=== PATIENT | male | born 1960 | race Caucasian/White ===

== ENCOUNTER 2019-01-13 11:46 | Emergency (ER) | payer BC ==
--- NOTE | 2019-01-13 13:53 | EDM.PDOC ---
ED HPI GENERAL MEDICAL PROBLEM - General Stated Complaint: RT KNEE PAIN Time Seen by Provider: 01/13/19 13:30 Source of Information: Reports: Patient History Limitations: Reports: No Limitations - History of Present Illness INITIAL COMMENTS - FREE TEXT/NARRATIVE: According to patient he claims he has been having left knee pain and swelling since Wednesday. Hurts to kneel. It started after he started gardening around [place] last Wednesday. HE developed pain over the lower knee cap. On Wednesday he notice redness. The redness has been localized to the lower knee cap and has not spread. But hurts to bend his knee. No fever or chills. No swelling of the leg or ankle.He is able to walk without discomfort. No other complaints. Onset: Gradual Onset Date: 01/11/19 Duration: Getting Worse Location: Reports: Lower Extremity, Left Quality: Reports: Ache Severity: Mild Improves with: Reports: Rest Worsens with: Reports: Movement Associated Symptoms: Denies: Confusion, Chest Pain, Cough, Diaphoresis, Fever/ Chills, Nausea/Vomiting, Rash, Seizure, Shortness of Breath, Syncope, Weakness right knee Pain Score (Numeric/FACES): 10 - Related Data Allergies Allergy/AdvReac Type Severity Reaction Status Date / Time No Known Allergies Allergy Verified 01/13/19 13:45 Home Meds: Home Meds Furosemide [Lasix] 20 mg PO DAILY 01/13/19 [History] Propranolol [Inderal] 40 mg PO DAILY 01/13/19 [History] ED ROS GENERAL - Review of Systems Review Of Systems: See Below Constitutional: Denies: Fever, Chills, Weakness HEENT: Denies: Ear Pain, Rhinitis, Throat Pain Respiratory: Denies: Cough, Sputum Cardiovascular: Denies: Chest Pain, Lightheadedness GI/Abdominal: Denies: Abdominal Pain, Nausea, Vomiting : Denies: Dysuria, Frequency Musculoskeletal: Reports: Joint Swelling. Denies: Joint Pain Skin: Denies: Bruising, Pruritis, Rash ED EXAM, GENERAL - Physical Exam Exam: See Below Exam Limited By: No Limitations General Appearance: Alert, WD/WN, No Apparent Distress Eye Exam: Bilateral Eye: EOMI, PERRL Ears: Normal External Exam, Normal Canal, Hearing Grossly Normal, Normal TMs Ear Exam: Bilateral Ear: Auricle Normal, Canal Normal, TM normal Nose: Normal Inspection, Normal Mucosa, No Blood Throat/Mouth: Normal Inspection, Normal Lips, Normal Teeth, Normal Gums, Normal Oropharynx, Normal Voice, No Airway Compromise Head: Atraumatic, Normocephalic Neck: Normal Inspection, Supple, Non-Tender, Full Range of Motion Respiratory/Chest: No Respiratory Distress, Lungs Clear, Normal Breath Sounds, No Accessory Muscle Use, Chest Non-Tender Extremities: Other (Left knee: There is swelling noted over the infrapatellar area. the swelling is about 4cm by 2cm. raised. There s mild erythema over the swelling. No skin abrasion or break down noted. On palpation mildly tender and minimal warmth felt.) Course - Vital Signs Text/Narrative:: Pt reassured that he has developed infrapatellar bursitis of the left knee. It probably is triggered by patient's gardening activities last week on dirt ground. His CBC is normal. There is more of inflammation. As he has been on dirt and soil kneeling, I have empirically started him on Augmentin 875mg 3 times daily. Advised warm compresses 3-4 times daily. Motrin 600mg 3 times daily. Pain and swelling should gradually improve. Pt advised to followup with his primary care provider if not better. Last Recorded V/S: Last Vital Signs Temp 98.9 F 01/13/19 13:46 Pulse 51 L 01/13/19 13:46 Resp 16 01/13/19 13:46 BP 126/86 01/13/19 13:46 Pulse Ox 98 01/13/19 13:46 - Orders/Labs/Meds Labs: Laboratory Tests 01/13/19 Range/Units 13:55 WBC 7.4 (4.0-11.0) K/uL RBC 5.26 (4.50-6.50) M/uL Hgb 15.7 (13.0-18.0) g/dL Hct 47.6 (40.0-54.0) % MCV 91 (76-96) fL MCH 29.8 (27.0-32.0) pg MCHC 33.0 (31.0-35.0) g/dL RDW 13.6 (11.0-16.0) % Plt Count 127 L (150-400) K/uL MPV 10.3 H (6.0-10.0) fL Neut % (Auto) 65.5 (45.0-70.0) % Lymph % (Auto) 23.7 (20.0-40.0) % [place] % (Auto) 8.0 (3.0-10.0) % Eos % (Auto) 2.4 (1.0-5.0) % Baso % (Auto) 0.4 (0.0-0.5) % Neut # (Auto) 4.86 (2.00-7.50) K/uL Lymph # (Auto) 1.76 (1.50-4.00) K/uL [place] # (Auto) 0.59 (0.20-0.80) K/uL Eos # (Auto) 0.18 (0.04-0.40) K/uL Baso # (Auto) 0.03 (0.02-0.10) K/uL Departure - Departure Time of Disposition: 14:00 Disposition: Home, Self-Care 01 Condition: Fair Clinical Impression: Infrapatellar bursitis of left knee - Discharge Information *PRESCRIPTION DRUG MONITORING PROGRAM REVIEWED*: Not Applicable *COPY OF PRESCRIPTION DRUG MONITORING REPORT IN PATIENT JU: Not Applicable Instructions: Prepatellar Bursitis Rehab-[facility], Prepatellar Bursitis Referrals: PCP,None [Primary Care Provider] - Forms: ED Department Discharge Additional Instructions: Use heat on the site often throughout the day. Take Motrin and/or tylenol as needed for the discomfort as well. Take the entire prescription of the antibiotic. If you have any further symptoms or they get worse, please follow up in the clinic or the ER if needed. Thank you and have a great day. - Problem List & Annotations (1) Infrapatellar bursitis of left knee SNOMED Code(s): 782539843 Code(s): M70.52 - OTHER BURSITIS OF KNEE, LEFT KNEE Status: Acute - Problem List Review Problem List Initiated/Reviewed/Updated: Yes - Assessment/Plan Assessment:: Left knee prepatellar bursitis Plan: Pt reassured that he has developed infrapatellar bursitis of the left knee. It probably is triggered by patient's gardening activities last week on dirt ground. His CBC is normal. There is more of inflammation. As he has been on dirt and soil kneeling, I have empirically started him on Augmentin 875mg 3 times daily. Advised warm compresses 3-4 times daily. Motrin 600mg 3 times daily. Pain and swelling should gradually improve. Pt advised to followup with his primary care provider if not better.
== END 2019-01-13 14:27 | disposition home or self-care (01) ==
LOC: LB.ED 11:46
DX: M70.52 Other bursitis of knee, left knee (principal); Z79.899 Other long term (current) drug therapy
CPT/HCPCS: 36415; 85025; 99283